=== PATIENT | female | born 1970 | race Caucasian/White ===

== ENCOUNTER 2017-10-05 13:17 | Emergency (ER) | payer BC ==
[2017-10-05 13:31] VITALS: BP 119/70
--- NOTE | 2017-10-05 13:59 | EDM.PDOC ---
ED HPI GENERAL MEDICAL PROBLEM - General Chief Complaint: Abdominal Pain Stated Complaint: [id number] Diarrhea Time Seen by Provider: 10/05/17 13:43 Source of Information: Reports: Patient, RN, RN Notes Reviewed History Limitations: Reports: No Limitations - History of Present Illness INITIAL COMMENTS - FREE TEXT/NARRATIVE: Pt presents to the ER with c/o cramping and diarrhea. She states she has had diarrhea since yesterday. She has had 2 episodes today. SHe states she just wants a note stating she came to the ER to be seen for the diarrhea so that she can take an incomplete on a final exam. She admits to fever and chills. Denies N /V. She admits to using Pepto Bismol for the diarrhea without any help. She denies use of Imodium. Onset: Gradual Onset Date: 10/04/17 Location: Reports: Abdomen Quality: Reports: Sharp Severity: Mild Improves with: Reports: None Worsens with: Reports: None Abdominal Pain Score (Numeric/FACES): 4 - Related Data Allergies Allergy/AdvReac Type Severity Reaction Status Date / Time hydrocodone Allergy Intermediate Disorientat Verified 10/05/15 23:21 ion acetaminophen [From Ultracet] Allergy Disorientat Verified 10/05/15 23:21 ion Penicillins Allergy Swelling Verified 10/05/15 23:21 tramadol HCl [From Ultracet] Allergy Disorientat Verified 10/05/15 23:21 ion Home Meds: Home Meds Azelastine HCl 137 mcg NS 10/21/14 [History] Past Medical History HEENT History: Reports: Sinusitis, Other (See Below) Other HEENT History: environmental allergies Respiratory History: Reports: Other (See Below) Other Respiratory History: 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: Neurological History: Reports: Migraines Endocrine/Metabolic History: Reports: Other (See Below) Other Endocrine/Metabolic History: elevated blood sugar, diet controlled at this point - Infectious Disease History Infectious Disease History: Reports: Chicken Pox - Past Surgical History Musculoskeletal Surgical History: Reports: Knee Replacement Social & Family History - Tobacco Use Smoking Status *Q: Never Smoker Second Hand Smoke Exposure: No - Caffeine Use Caffeine Use: Reports: Coffee, Tea - Alcohol Use Days Per Week of Alcohol Use: 1 Number of Drinks Per Day: 1 Total Drinks Per Week: 1 - Recreational Drug Use Recreational Drug Use: No ED ROS GENERAL - Review of Systems Review Of Systems: ROS reveals no pertinent complaints other than HPI. ED EXAM, GI/ABD - Physical Exam Exam: See Below Exam Limited By: No Limitations General Appearance: Alert, WD/WN, No Apparent Distress Eyes: Bilateral: EOMI Ears: Normal External Exam, Hearing Grossly Normal Nose: Normal Inspection Throat/Mouth: Normal Inspection, Normal Lips, Normal Teeth, Normal Gums, Normal Oropharynx, Normal Voice, No Airway Compromise Head: Atraumatic, Normocephalic Neck: Normal Inspection, Supple, Non-Tender, Full Range of Motion Respiratory/Chest: No Respiratory Distress, Lungs Clear, Normal Breath Sounds, No Accessory Muscle Use, Chest Non-Tender Cardiovascular: Normal Peripheral Pulses, Regular Rate, Rhythm, No Edema, No Gallop, No JVD, No Murmur, No Rub GI/Abdominal Exam: Normal Bowel Sounds, Soft, Non-Tender, No Organomegaly, No Distention, No Abnormal Bruit, No Mass, Pelvis Stable (Female) Exam: Deferred Rectal (Female) Exam: Deferred Back Exam: Normal Inspection, Full Range of Motion, NT Extremities: Normal Inspection, Normal Range of Motion, Non-Tender, Normal Capillary Refill, No Pedal Edema Neurological: Alert, Oriented, CN II-XII Intact, Normal Cognition, Normal Gait, Normal Reflexes, No Motor/Sensory Deficits Psychiatric: Normal Affect, Normal Mood Skin Exam: Warm, Dry, Intact, Normal Color, No Rash Lymphatic: No Adenopathy Course - Vital Signs Last Recorded V/S: Last Vital Signs Temp 97.6 F 10/05/17 13:30 Pulse 81 10/05/17 13:30 Resp 16 10/05/17 13:30 BP 119/70 10/05/17 13:30 Pulse Ox 119 H 10/05/17 13:30 Departure - Departure Time of Disposition: 13:58 Disposition: Home, Self-Care 01 Condition: Good Clinical Impression: Gastroenteritis Diarrhea Qualifiers: Diarrhea type: unspecified type Qualified Code(s): R19.7 - Diarrhea, unspecified - Discharge Information Instructions: Viral Gastroenteritis, Adult, [id number], Abdominal Pain, Adult , [id number], Diarrhea, Adult, [id number] Forms: ED Department Discharge Additional Instructions: Get Imodium over the counter and take as directed on the box. Drink plenty of water Follow up with your primary care facility next week if no improvement.
== END 2017-10-05 14:06 | disposition home or self-care (01) ==
LOC: DL.ED 13:17
DX: K52.9 Noninfective gastroenteritis and colitis, unspecified (principal); Z88.5 Allergy status to narcotic agent; Z88.0 Allergy status to penicillin; Z88.6 Allergy status to analgesic agent
CPT/HCPCS: 99284

== ENCOUNTER 2019-04-03 11:56 | Emergency (ER) | payer BC ==
[2019-04-03 12:20] VITALS: BP 117/71
[2019-04-03] MEDS ORDERED: Ketorolac 30 MG/ML SDV IVPUSH ONE (12:23)
--- NOTE | 2019-04-03 12:27 | EDM.PDOC ---
ED HPI GENERAL MEDICAL PROBLEM - General Chief Complaint: Chest Pain Stated Complaint: HARD TIME BREATHING Time Seen by Provider: 04/03/19 12:23 Source of Information: Reports: Patient History Limitations: Reports: No Limitations - History of Present Illness INITIAL COMMENTS - FREE TEXT/NARRATIVE: onset left chest pain this am, gives h/o pleurisy and it feels like it, denies straining. Left Chest Pain Score (Numeric/FACES): 8 - Related Data Allergies Allergy/AdvReac Type Severity Reaction Status Date / Time hydrocodone Allergy Intermediate Disorientat Verified 04/03/19 12:18 ion acetaminophen [From Ultracet] Allergy Disorientat Verified 04/03/19 12:18 ion Penicillins Allergy Swelling Verified 04/03/19 12:18 tramadol HCl [From Ultracet] Allergy Disorientat Verified 04/03/19 12:18 ion Home Meds: Home Meds Azelastine HCl 137 mcg NS 10/21/14 [History] Past Medical History HEENT History: Reports: Sinusitis, Other (See Below) Other HEENT History: environmental allergies Respiratory History: Reports: Other (See Below) Other Respiratory History: pleurisy [employer]GER [employer] History: Reports: Neurological History: Reports: Migraines Endocrine/Metabolic History: Reports: Other (See Below) Other Endocrine/Metabolic History: elevated blood sugar, diet controlled at this point - Infectious Disease History Infectious Disease History: Reports: Chicken Pox - Past Surgical History Musculoskeletal Surgical History: Reports: Knee Replacement Social & Family History - Caffeine Use Caffeine Use: Reports: Coffee, Tea ED ROS GENERAL - Review of Systems Review Of Systems: ROS reveals no pertinent complaints other than HPI. ED EXAM, GENERAL - Physical Exam Exam: See Below Exam Limited By: No Limitations General Appearance: Alert, WD/WN, Anxious, Mild Distress, Other (tearful) Ears: Hearing Grossly Normal Throat/Mouth: Normal Voice, No Airway Compromise Head: Atraumatic Neck: Non-Tender, Full Range of Motion Respiratory/Chest: Rhonchi, Splinting, Other (left lateral, no gorss s/s trauma) Cardiovascular: Regular Rate, Rhythm GI/Abdominal: Soft, Non-Tender Neurological: Alert, Oriented, Normal Cognition, Normal Gait, No Motor/Sensory Deficits Psychiatric: Anxious, Tearful Skin Exam: Warm, Dry, Normal Color Lymphatic: No Adenopathy Course - Vital Signs Last Recorded V/S: Last Vital Signs Temp 36.7 C 04/03/19 12:18 Pulse 70 04/03/19 12:18 Resp 18 04/03/19 12:18 BP 117/71 04/03/19 12:18 Pulse Ox 99 04/03/19 12:18 - Orders/Labs/Meds Orders: Active Orders 24 hr Category Date Time Status EKG Documentation Completion [RC] STAT Care 04/03/19 12:16 Active Labs: Laboratory Tests 04/03/19 04/03/19 04/03/19 Range/Units 12:26 12:26 12:26 WBC 9.1 (5.0-10.0) 10^3/uL RBC 4.52 (4.2-5.4) 10^6/uL Hgb 13.0 (12.0-16.0) g/dL Hct 39.3 (37.0-47.0) % MCV 86.9 (80-100) fL MCH 28.8 (27.0-34.0) pg MCHC 33.1 (33.0-35.0) g/dL Plt Count 234 (150-450) 10^3/uL Neut % (Auto) 47.4 (42.2-75.2) % Lymph % (Auto) 40.5 (20.5-50.1) % Randolph % (Auto) 7.6 (2-8) % Eos % (Auto) 4.1 H (1.0-3.0) % Baso % (Auto) 0.4 (0.0-1.0) % D-Dimer, Quantitative < 100 (0-400) ng/mL Sodium 137 (135-145) mmol/L Potassium 4.0 (3.6-5.0) mmol/L Chloride 106 (101-111) mmol/L Carbon Dioxide 24.0 (21.0-31.0) mmol/L Anion Gap 11.0 BUN 11 (7-18) mg/dL Creatinine 0.8 (0.6-1.3) mg/dL Est Cr Clr Drug Dosing 97.09 mL/min Estimated GFR (MDRD) > 60 BUN/Creatinine Ratio 13.75 Glucose 97 (74-105) mg/dL Calcium 8.5 (8.4-10.2) mg/dl Total Bilirubin 1.0 (0.2-1.0) mg/dL AST 17 (10-42) IU/L ALT 21 (10-60) IU/L Alkaline Phosphatase 62 (42-121) IU/L Troponin I < 0.02 (0.00-0.02) ng/ml Total Protein 6.7 (6.7-8.2) g/dl Albumin 4.0 (3.2-5.5) g/dl Globulin 2.7 Albumin/Globulin Ratio 1.48 Meds: Medications Discontinued Medications Generic Name Dose Route Start Last Admin Trade Name Lore PRN Reason Stop Dose Admin Fentanyl 50 mcg 04/03/19 13:41 04/03/19 13:48 Sublimaze IVPUSH 04/03/19 13:42 50 mcg ONETIME ONE Administration Ketorolac Tromethamine 30 mg 04/03/19 12:23 04/03/19 12:31 Toradol IVPUSH 04/03/19 12:24 30 mg ONETIME ONE Administration Methylprednisolone Sodium Succinate 125 mg 04/03/19 13:41 04/03/19 13:48 Solu-Medrol IVPUSH 04/03/19 13:42 125 mg ONETIME ONE Administration Ondansetron HCl 4 mg 04/03/19 13:56 04/03/19 14:00 Zofran Odt PO 04/03/19 13:57 4 mg ONETIME ONE Administration - Re-Assessments/Exams Free Text/Narrative Re-Assessment/Exam: 04/03/19 13:42 results discussed with pt who is better somewhat presently. Departure - Departure Time of Disposition: 14:20 Disposition: Home, Self-Care 01 Condition: Good Clinical Impression: Pleurisy - Discharge Information Instructions: Pleurisy, [id number] Referrals: PCP,None [Primary Care Provider] - Forms: ED Department Discharge Additional Instructions: 1) rest 2) try ice or heat to sore areas 3) take tylenol or motrin as needed 4) recheck if there is any change or concern - My Orders Last 24 Hours: My Active Orders 04/03/19 12:16 EKG Documentation Completion [RC] STAT - Assessment/Plan Last 24 Hours: My Active Orders 04/03/19 12:16 EKG Documentation Completion [RC] STAT
[2019-04-03 12:54] LABS: CHLORIDE,CL 106 mmol/L (101-111); SODIUM,NA 137 mmol/L (135-145)
[2019-04-03] MEDS ORDERED: methylPREDNISolone Sodium Succinate 125 MG/2 ML SDV IVPUSH ONE (13:41)
[2019-04-03] MEDS ORDERED: fentaNYL 100 MCG/2 ML SDV IVPUSH ONE (13:41)
[2019-04-03] MEDS ORDERED: Ondansetron 4 MG Tab.DIS PO ONE (13:56)
== END 2019-04-03 14:20 | disposition home or self-care (01) ==
LOC: DL.ED 11:56
DX: R09.1 Pleurisy (principal); Z88.6 Allergy status to analgesic agent; Z88.0 Allergy status to penicillin
CPT/HCPCS: 36415; 71045; 80053; 84484; 85025; 85379; 93005; 96374; 96375; 99284; A9270; J1885; J2930; J3010

== ENCOUNTER 2024-04-28 18:14 | Emergency (ER) | payer BC ==
[2024-04-28 20:32] VITALS: BP 143/72; PULSE 72
[2024-04-28] MEDS: Take Home: Amoxicillin/Clavulanate K 875-125 MG Tab, 6 Tab Pack PO ONE (20:51)
[2024-04-28] MEDS: Take Home: Acetaminophen/oxyCODONE 325-5 MG, 5 Tab Pack PO ONE (20:51)
[2024-04-28] MEDS: Bacitracin Oint 1 GM U/D Packet TOP ONE (20:52)
== END 2024-04-28 21:51 | disposition home or self-care (01) ==
LOC: DL.ED 18:14
DX: S71.152A Open bite, left thigh, initial encounter (principal); Z88.5 Allergy status to narcotic agent; Z88.0 Allergy status to penicillin; Z88.8 Allergy status to other drugs, medicaments and biological substances; W54.0XXA Bitten by dog, initial encounter
CPT/HCPCS: 99283; A9270

== ENCOUNTER 2024-07-15 16:41 | Emergency (ER) | payer BC ==
[2024-07-15 16:53] VITALS: BP 136/79; PULSE 66
[2024-07-15] MEDS: Mupirocin Oint 22 GM Tube TOP ONE (17:32)
[2024-07-15] MEDS: methylPREDNISolone Sodium Succinate 125 MG/2 ML SDV IM ONE (17:34)
== END 2024-07-15 17:45 | disposition home or self-care (01) ==
LOC: DL.ED 16:41
DX: L25.9 Unspecified contact dermatitis, unspecified cause (principal); Z79.899 Other long term (current) drug therapy; Z88.0 Allergy status to penicillin; Z88.5 Allergy status to narcotic agent; Z88.8 Allergy status to other drugs, medicaments and biological substances
CPT/HCPCS: 96372; 99282; 99284; A9270-GY; J2919

== ENCOUNTER 2024-10-12 22:28 | Emergency (ER) | payer BC ==
[2024-10-12] MEDS: Glucagon,Human Recombinant 1 MG Vial IVPUSH ONE (23:27)
[2024-10-12] MEDS: Sodium Chloride 0.9% 1,000 ML IV ONE (23:27)
[2024-10-12] MEDS: Famotidine 20 MG/2 ML SDV IVPUSH ONE (23:43)
[2024-10-13 00:29] VITALS: BP 126/78; PULSE 73
== END 2024-10-13 00:25 | disposition home or self-care (01) ==
LOC: DL.ED 22:28
DX: K22.4 Dyskinesia of esophagus (principal); Z96.659 Presence of unspecified artificial knee joint; Z88.5 Allergy status to narcotic agent; Z88.0 Allergy status to penicillin; Z88.8 Allergy status to other drugs, medicaments and biological substances; Z79.899 Other long term (current) drug therapy
CPT/HCPCS: 71045; 96361; 96374; 96375; 99284; J1610; J3490; J7030

== ENCOUNTER 2024-10-26 21:10 | Emergency (ER) | payer BC ==
[2024-10-26] MEDS: Proparacaine 0.5% Ophth Soln 15 ML Bottle EYELF STA (22:00)
[2024-10-26] MEDS: Sodium Chloride 0.9% 1,000 ML IV ONE (22:09)
[2024-10-26] MEDS: Fluorescein 1 MG Ophth Strip EYELF ONE (23:07)
[2024-10-26 23:19] VITALS: BP 131/70; PULSE 74
== END 2024-10-26 23:16 | disposition home or self-care (01) ==
LOC: DL.ED 21:10
DX: H57.8A2 Foreign body sensation, left eye (principal); Z96.659 Presence of unspecified artificial knee joint; Z88.5 Allergy status to narcotic agent; Z88.0 Allergy status to penicillin; Z88.8 Allergy status to other drugs, medicaments and biological substances; Z79.899 Other long term (current) drug therapy
CPT/HCPCS: 99283; J7030; J3490

== ENCOUNTER 2025-07-08 07:09 | Emergency (ER) | payer BC, OTHER ==
[2025-07-08 07:40] LABS: BASOPHILS PERCENT AUTO 0.4 % (0.0-1.0); EOSINOPHILS PERCENT AUTO 3.3 % (1.0-3.0); LYMPHOCYTES PERCENT AUTO 48.8 % (20.5-50.1); MONOCYTES PERCENT AUTO 6.6 % (2-8); NEUTROPHILS PERCENT AUTO 40.9 % (42.2-75.2); PLATELET COUNT,PLT 259 10^3/uL (150-450); RED BLOOD CELL COUNT 4.56 10^6/uL (4.2-5.4); WHITE BLOOD CELL COUNT,WBC 7.0 10^3/uL (5.0-10.0)
[2025-07-08 08:01] LABS: INR 0.9 (0.9-1.2)
[2025-07-08 08:02] LABS: BLOOD UREA NITROGEN,BUN 16.0 mg/dL (7-18); CARBON DIOXIDE,CO2 30.0 mmol/L (21-32); CHLORIDE,CL 105.0 mmol/L (98-107); CREATININE 0.85 mg/dL (0.55-1.02); EST CRCL DRUG DOSING (CG) 85.28 mL/min; GLUCOSE RANDOM 120.0 mg/dL (70-99); POTASSIUM,K 3.8 mmol/L (3.5-5.1); SODIUM,NA 142.0 mmol/L (136-145)
[2025-07-08 08:17] LABS: ESTIMATED GFR 80.0 mL/min (>=60)
[2025-07-08 09:33] VITALS: BP 115/73; PULSE 60
== END 2025-07-08 10:04 | disposition home or self-care (01) ==
LOC: DL.ED 07:09
DX: R07.89 Other chest pain (principal); Z88.5 Allergy status to narcotic agent; Z88.0 Allergy status to penicillin; Z88.8 Allergy status to other drugs, medicaments and biological substances; Z79.899 Other long term (current) drug therapy
CPT/HCPCS: 36415; 71045; 80048; 84484; 85025; 85610; 93005; 99285